=== PATIENT | male | born 1935 | race Caucasian/White ===

== ENCOUNTER 2021-09-12 14:37 | Emergency (ER) | payer MEDICARE, OTHER, SELFPAY ==
[2021-09-12] VITALS (145 sets, daily range): BP systolic 73–189; BP diastolic 50–147; PULSE 0–174; RESP 5–63; TEMP 36–37.2; O2SAT 71–100; BMI 27.8
--- NOTE | 2021-09-12 14:45 | DI.RAD.S_ITS ---
PROCEDURE: XR CHEST 1V INDICATIONS: Chest pain, arrhythmia TECHNIQUE: One view of the chest was acquired. COMPARISON: [facility], [place], XR CHEST 1 VIEW, 02/18/2020, 11:47. FINDINGS: The tracheal tube tip 2 cm above the sterling. Nasogastric tube in the stomach. Left-sided biventricular pacemaker/defibrillator noted. There are midline sternal wires, and multiple overlying leads and wires present. Elevation left hemidiaphragm with blunting the left costophrenic angle. Right lung and pleural space clear. No pneumothorax . Heart size enlarged, there is moderate vascular congestion. Auto text arch Osseous structures demineralized. IMPRESSION: Elevated left hemidiaphragm with pleural effusion. No pneumothorax Cardiomegaly, moderate vascular congestion with pacemaker/defibrillator present. Endotracheal and nasogastric tubes in good position. Aortic atherosclerosis and osteopenia Approved by: Celestine Craven M.D. on 09/12/2021 at 15:41
[2021-09-12] MEDS: MIDAZOLAM 2 MG/2 ML VIAL 1 MG IV ×2 (14:48→15:12)
[2021-09-12] MEDS: AMIODARONE 150 MG/3 ML VIAL 300 MG IV (14:51)
[2021-09-12 14:58] LABS: Add Manual Diff / Slide Review NO; Basophils Absolute Auto 100 /uL (0-100); Basophils Percent Auto 0.8 % (0-2); Eosinophils Absolute Auto 100 /uL (0-450); Eosinophils Percent Auto 2.1 % (2-4); Hematocrit 42.9 % (41-53); Hemoglobin 14.1 g/dL (13.5-17.5); Lymphocytes Absolute Auto 1200 /uL (1100-4500); Lymphocytes Percent Auto 19.1 % (25-40); Mean Corpuscular HGB Conc 32.8 % (30-36); Mean Corpuscular Hemoglobin 31.8 PG (26-34); Monocytes Absolute Auto 800 /uL (0-900); Neutrophils Absolute Auto 4200 /uL (1500-7000); Platelet Count 158 X10^3/uL (150-400); Red Blood Cell Count 4.42 X10^6/uL (4.5-5.9); Red Cell Distribution Width 14.4 % (11.6-14.8); White Blood Cell Count 6.4 X10^3/uL (4.5-11.0)
[2021-09-12] MEDS: SODIUM CHLORIDE 0.9% 1,000 ML 1000 ML IV (15:00)
[2021-09-12] MEDS: AMIODARONE 150 MG/100 ML PIGGYBACK 600 MG IV (15:00)
--- NOTE | 2021-09-12 15:09 | ED_ITS ---
HPI - General Adult <Gila Dee MD - Last Filed: 09/19/21 04:20> General Chief complaint: Arrhythmia/Palpitations Stated complaint: [employer] Going Off Time Seen by Provider: 09/12/21 14:44 Source: patient and family Mode of arrival: Family Vehicle History of Present Illness HPI narrative: 85-year-old gentleman with a history of ischemic cardiomyopathy with pacemaker defibrillator, anticoagulated on Coumadin, hypertension, hyperlipidemia, congestive heart failure, peripheral neuropathy brought in by his when his defibrillator was continuing to discharge. Apparently he was in his usual state of health having no chest pain, palpitations, shortness of breath no lower extremity edema no fevers, cough, chills, vomiting, diarrhea and as they were driving he was shocked by his defibrillator and continued to be shocked multiple times after that. On arrival in the emergency department was having runs of ventricular tachycardia. He was shocked 1 additional time after arrival in the emergency department. Related Data Home Medications Medication Instructions Recorded Confirmed atorvastatin 20 mg tablet PO #90 tab 12/09/18 04/21/20 bupropion HCl 100 mg tablet 100 mg PO BID 12/09/18 04/21/20 bupropion HCl 100 mg tablet PO #180 tab 12/09/18 04/21/20 epinephrine 0.3 mg/0.3 mL 0.3 mg IM ONCE 12/09/18 04/21/20 injection, auto-injector (EpiPen 2-David) ferrous sulfate 325 mg (65 mg 325 mg PO DAILY tab 12/09/18 04/21/20 iron) tablet,delayed release sacubitril 49 mg-valsartan 51 mg PO #60 tab 12/09/18 04/21/20 tablet warfarin 5 mg tablet PO #90 tab 12/09/18 04/21/20 calcium carbonate 500 mg calcium 750 mg PO DAILY tab 04/21/20 04/21/20 (1,250 mg) chewable tablet (Calcium 500) cholecalciferol (vitamin D3) 25 25 mcg PO DAILY 04/21/20 04/21/20 mcg (1,000 unit) capsule cyanocobalamin (vitamin B-12) 1,000 mcg PO DAILY 04/21/20 04/21/20 1,000 mcg capsule furosemide 40 mg tablet 20 mg PO DAILY #120 tab 04/21/20 04/21/20 gabapentin 100 mg capsule 100 mg PO TID 04/21/20 04/21/20 metoprolol succinate 25 mg 12.5 mg PO DAILY 04/21/20 04/21/20 tablet,extended release 24 hr Allergies Allergy/AdvReac Type Severity Reaction Status Date / Time venom-honey bee Allergy Mild Verified 09/12/21 20:45 Review of Systems <Gila Dee MD - Last Filed: 09/19/21 04:20> Review of Systems Narrative: Remainder of complete review of systems is otherwise unremarkable except for that included in the HPI. Patient History <Gila Dee MD - Last Filed: 09/19/21 04:20> Medical History Chronic anticoagulation Hyperlipidemia Hypertension Surgical History History of heart bypass surgery Social History Smoking Status: Former smoker Smoking Status: Former smoker Exam <Gila Dee MD - Last Filed: 09/19/21 04:20> Initial Vital Signs Initial Vital Signs: Vital Signs Temperature 96.8 F L 09/12/21 14:37 Pulse Rate 174 H 09/12/21 14:37 Respiratory Rate 18 09/12/21 14:37 Blood Pressure 114/60 09/12/21 14:37 Pulse Oximetry 88 L 09/12/21 14:37 <Óscar Torres DO - Last Filed: 09/13/21 06:28> Initial Vital Signs Initial Vital Signs: Vital Signs Temperature 96.8 F L 09/12/21 14:37 Pulse Rate 174 H 09/12/21 14:37 Respiratory Rate 18 09/12/21 14:37 Blood Pressure 114/60 09/12/21 14:37 Pulse Oximetry 88 L 09/12/21 14:37 Course <Gila Dee MD - Last Filed: 09/19/21 04:20> Orders Ordered: Discontinued Medications Amiodarone HCl (Amiodarone 150 Mg/3 Ml Vial) 300 mg IV NOW ONE Stop: 09/12/21 14:45 Last Admin: 09/12/21 14:51 Dose: 300 mg Documented by: MARIA R Chlorhexidine Gluconate (Chlorhexidine Gluconate 15 Ml Cup) 15 ml PO Q6HR ROXANA Last Admin: 09/13/21 04:15 Dose: 15 ml Documented by: Admin: 09/12/21 19:53 Dose: Not Given Documented by: JOSE Fentanyl (Fentanyl 100 Mcg/2 Ml Inj) 50 mcg IV NOW ONE Stop: 09/12/21 17:07 Last Admin: 09/12/21 15:12 Dose: 50 mcg Documented by: MARIA R Fentanyl (Fentanyl 100 Mcg/2 Ml Inj) 50 mcg IV Q15MIN PRN PRN Reason: Pain, Severe (7-10) Last Admin: 09/12/21 20:08 Dose: 50 mcg Documented by: JOSE Heparin Sodium (Porcine) (Heparin 5,000 Unit/Ml Vial) 4,000 unit IV NOW ONE Stop: 09/12/21 22:15 Last Admin: 09/12/21 23:18 Dose: 4,000 unit Documented by: JOSE Amiodarone HCl/Dextrose (Nexterone) 150 mg in 100 mls @ 600 mls/hr IV NOW ONE; Protocol Stop: 09/12/21 15:13 Last Infusion: 09/12/21 15:11 Dose: 0 mls/hr Documented by: Admin: 09/12/21 15:00 Dose: 600 mls/hr Documented by: MARIA R NOREPINEPHRINE BITARTRATE/D5W (Levophed) 4 mg in 250 mls @ 30 mls/hr IV TITRATE [facility]; Protocol Last Titration: 09/13/21 06:43 Dose: 4 mcg/min, 15 mls/hr Documented by: Admin: 09/13/21 04:14 Dose: 4 mcg/min, 15 mls/hr Documented by: Titration: 09/13/21 04:14 Dose: 4 mcg/min, 15 mls/hr Documented by: Titration: 09/12/21 23:04 Dose: 4 mcg/min, 15 mls/hr Documented by: Titration: 09/12/21 22:07 Dose: 2 mcg/min, 7.5 mls/hr Documented by: Titration: 09/12/21 19:15 Dose: 4 mcg/min, 15 mls/hr Documented by: Titration: 09/12/21 17:49 Dose: 6 mcg/min, 22.5 mls/hr Documented by: Titration: 09/12/21 15:57 Dose: 8 mcg/min, 30 mls/hr Documented by: MARIA R Admin: 09/12/21 15:20 Dose: 8 mcg/min, 30 mls/hr Documented by: MARIA R Sodium Chloride (Normal Saline 0.9%) 1,000 mls @ 1,000 mls/hr IV BOLUS ONE Stop: 09/12/21 16:35 Last Infusion: 09/12/21 16:00 Dose: 0 mls/hr Documented by: Admin: 09/12/21 15:00 Dose: 1,000 mls/hr Documented by: JOSE Fentanyl 1,000 mcg/ Dextrose 250 mls @ 20.185 mls/hr IV TITRATE ROXANA; Protocol Last Titration: 09/13/21 06:44 Dose: 1 mcg/kg/hr, 20.185 mls/hr Documented by: Admin: 09/13/21 01:57 Dose: 1 mcg/kg/hr, 20.185 mls/hr Documented by: Titration: 09/13/21 01:57 Dose: 1 mcg/kg/hr, 20.185 mls/hr Documented by: Admin: 09/12/21 15:54 Dose: 1 mcg/kg/hr, 20.185 mls/hr Documented by: JOSE Propofol (Propofol) 1,000 mg in 100 mls @ 2.422 mls/hr IV TITRATE ROXANA; Protocol Last Titration: 09/13/21 06:44 Dose: 25 mcg/kg/min, 12.111 mls/hr Documented by: Admin: 09/13/21 01:06 Dose: 25 mcg/kg/min, 12.111 mls/hr Documented by: Titration: 09/13/21 01:06 Dose: 25 mcg/kg/min, 12.111 mls/hr Documented by: Titration: 09/12/21 20:13 Dose: 25 mcg/kg/min, 12.111 mls/hr Documented by: Titration: 09/12/21 18:42 Dose: 20 mcg/kg/min, 9.689 mls/hr Documented by: Titration: 09/12/21 17:59 Dose: 10 mcg/kg/min, 4.844 mls/hr Documented by: Admin: 09/12/21 17:46 Dose: 5 mcg/kg/min, 2.422 mls/hr Documented by: LINDAYLALONSO Amiodarone HCl/Dextrose (Nexterone) 360 mg in 200 mls @ 33.333 mls/hr IV NOW ONE; Protocol Stop: 09/13/21 01:05 Last Titration: 09/13/21 06:21 Dose: 0 mls/hr, 0 mls/hr Documented by: Admin: 09/12/21 19:42 Dose: 33.333 mls/hr, 33.33 mls/hr Documented by: JOSE Heparin Sodium/Dextrose (Heparin Drip) 25,000 unit in 500 mls @ 20 mls/hr IV CONT ROXANA; Protocol Last Titration: 09/13/21 06:46 Dose: 1,000 units/hr, 20 mls/hr Documented by: Admin: 09/12/21 23:20 Dose: 1,000 units/hr, 20 mls/hr Documented by: ATAYLOR Amiodarone HCl/Dextrose (Nexterone) 360 mg in 200 mls @ 33.333 mls/hr IV NOW ONE; Protocol Stop: 09/13/21 07:19 Last Titration: 09/13/21 06:45 Dose: 33.33 mls/hr, 33.33 mls/hr Documented by: Admin: 09/13/21 01:44 Dose: 33.33 mls/hr, 33.33 mls/hr Documented by: LANE Midazolam HCl (Midazolam 2 Mg/2 Ml Vial) 1 mg IV NOW ONE Stop: 09/12/21 14:45 Last Admin: 09/12/21 14:48 Dose: 1 mg Documented by: MARIA R Midazolam HCl (Midazolam 2 Mg/2 Ml Vial) 1 mg IV NOW ONE Stop: 09/12/21 17:07 Last Admin: 09/12/21 15:12 Dose: 1 mg Documented by: MARIA R Vital Signs Vital signs: Vital Signs - 8 hr 09/12/21 22:20 09/12/21 22:30 09/12/21 22:40 Temperature 97.7 F 97.7 F 97.7 F Pulse Rate 60 66 60 Respiratory Rate 43 H 42 H 41 H Blood Pressure 104/59 L Pulse Oximetry 100 100 100 09/12/21 22:45 09/12/21 22:50 09/12/21 23:00 Temperature 97.7 F 97.7 F 97.7 F Pulse Rate 67 67 61 Respiratory Rate 40 H 40 H 46 H Blood Pressure 100/59 L 87/60 L Pulse Oximetry 100 100 100 09/12/21 23:02 09/12/21 23:10 09/12/21 23:15 Temperature 97.7 F 97.7 F 97.7 F Pulse Rate 60 61 66 Respiratory Rate 47 H 44 H 16 Blood Pressure 95/56 L 101/58 L Pulse Oximetry 100 100 100 09/12/21 23:20 09/12/21 23:30 09/12/21 23:40 Temperature 97.7 F 97.7 F 97.7 F Pulse Rate 71 67 72 Respiratory Rate 16 16 16 Blood Pressure 102/54 L Pulse Oximetry 100 100 100 09/12/21 23:46 09/12/21 23:50 09/13/21 00:00 Temperature 97.5 F L 97.5 F L 97.5 F L Pulse Rate 61 61 62 Respiratory Rate 16 16 16 Blood Pressure 106/60 111/62 Pulse Oximetry 100 100 100 09/13/21 00:10 09/13/21 00:16 09/13/21 00:20 Temperature 97.5 F L 97.5 F L 97.5 F L Pulse Rate 70 65 65 Respiratory Rate 16 16 46 H Blood Pressure 109/56 L Pulse Oximetry 100 100 100 09/13/21 00:30 09/13/21 00:40 09/13/21 00:45 Temperature 97.5 F L 97.5 F L 97.5 F L Pulse Rate 65 69 60 Respiratory Rate 45 H 18 25 H Blood Pressure 105/67 105/64 Pulse Oximetry 100 100 100 09/13/21 00:50 09/13/21 01:00 09/13/21 01:10 Temperature 97.5 F L 97.5 F L 97.5 F L Pulse Rate 64 65 73 Respiratory Rate 22 24 22 Blood Pressure 107/56 L Pulse Oximetry 100 100 100 09/13/21 01:15 09/13/21 01:20 09/13/21 01:30 Temperature 97.5 F L 97.5 F L 97.5 F L Pulse Rate 70 68 84 Respiratory Rate 21 21 19 Blood Pressure 103/56 L 106/55 L Pulse Oximetry 100 100 100 09/13/21 01:40 09/13/21 01:45 09/13/21 01:50 Temperature 97.5 F L Pulse Rate 70 72 83 Respiratory Rate 22 18 16 Blood Pressure 100/56 L Pulse Oximetry 100 100 100 09/13/21 02:00 09/13/21 02:10 09/13/21 02:15 Temperature Pulse Rate 67 69 70 Respiratory Rate 22 16 16 Blood Pressure 109/60 117/63 Pulse Oximetry 100 100 100 09/13/21 02:20 09/13/21 02:30 09/13/21 02:40 Temperature Pulse Rate 70 82 73 Respiratory Rate 16 16 16 Blood Pressure Pulse Oximetry 100 100 100 09/13/21 02:45 09/13/21 02:50 09/13/21 03:00 Temperature Pulse Rate 81 90 82 Respiratory Rate 16 16 16 Blood Pressure 119/70 114/77 Pulse Oximetry 100 100 100 09/13/21 03:10 09/13/21 03:20 09/13/21 03:28 Temperature Pulse Rate 61 68 76 Respiratory Rate 16 16 16 Blood Pressure 117/60 Pulse Oximetry 100 100 100 09/13/21 03:30 09/13/21 03:40 09/13/21 03:45 Temperature Pulse Rate 73 83 89 Respiratory Rate 18 16 16 Blood Pressure 112/73 104/68 Pulse Oximetry 100 100 100 09/13/21 03:50 09/13/21 04:00 09/13/21 04:10 Temperature Pulse Rate 74 68 85 Respiratory Rate 16 16 21 Blood Pressure 97/68 Pulse Oximetry 100 100 100 09/13/21 04:18 09/13/21 04:20 09/13/21 04:26 Temperature Pulse Rate 65 81 72 Respiratory Rate 21 23 21 Blood Pressure 109/69 102/72 Pulse Oximetry 100 100 100 09/13/21 04:30 09/13/21 04:40 09/13/21 04:50 Temperature Pulse Rate 76 88 77 Respiratory Rate 19 23 22 Blood Pressure 112/67 Pulse Oximetry 100 100 100 09/13/21 05:00 09/13/21 05:10 09/13/21 05:20 Temperature Pulse Rate 83 83 77 Respiratory Rate 20 21 Blood Pressure 108/78 Pulse Oximetry 100 100 100 09/13/21 05:30 09/13/21 05:40 09/13/21 05:50 Temperature Pulse Rate 86 77 73 Respiratory Rate 18 20 21 Blood Pressure 123/77 Pulse Oximetry 100 100 100 <Óscar Torres, - Last Filed: 09/13/21 06:28> Orders Ordered: Discontinued Medications Amiodarone HCl (Amiodarone 150 Mg/3 Ml Vial) 300 mg IV NOW ONE Stop: 09/12/21 14:45 Last Admin: 09/12/21 14:51 Dose: 300 mg Documented by: MARIA R Chlorhexidine Gluconate (Chlorhexidine Gluconate 15 Ml Cup) 15 ml PO Q6HR ROXANA Last Admin: 09/13/21 04:15 Dose: 15 ml Documented by: Admin: 09/12/21 19:53 Dose: Not Given Documented by: JOSE Fentanyl (Fentanyl 100 Mcg/2 Ml Inj) 50 mcg IV NOW ONE Stop: 09/12/21 17:07 Last Admin: 09/12/21 15:12 Dose: 50 mcg Documented by: MARIA R Fentanyl (Fentanyl 100 Mcg/2 Ml Inj) 50 mcg IV Q15MIN PRN PRN Reason: Pain, Severe (7-10) Last Admin: 09/12/21 20:08 Dose: 50 mcg Documented by: JOSE Heparin Sodium (Porcine) (Heparin 5,000 Unit/Ml Vial) 4,000 unit IV NOW ONE Stop: 09/12/21 22:15 Last Admin: 09/12/21 23:18 Dose: 4,000 unit Documented by: JOSE Amiodarone HCl/Dextrose (Nexterone) 150 mg in 100 mls @ 600 mls/hr IV NOW ONE; Protocol Stop: 09/12/21 15:13 Last Infusion: 09/12/21 15:11 Dose: 0 mls/hr Documented by: Admin: 09/12/21 15:00 Dose: 600 mls/hr Documented by: MARIA R NOREPINEPHRINE BITARTRATE/D5W (Levophed) 4 mg in 250 mls @ 30 mls/hr IV TITRATE ROXANA; Protocol Last Titration: 09/13/21 06:43 Dose: 4 mcg/min, 15 mls/hr Documented by: Admin: 09/13/21 04:14 Dose: 4 mcg/min, 15 mls/hr Documented by: Titration: 09/13/21 04:14 Dose: 4 mcg/min, 15 mls/hr Documented by: Titration: 09/12/21 23:04 Dose: 4 mcg/min, 15 mls/hr Documented by: Titration: 09/12/21 22:07 Dose: 2 mcg/min, 7.5 mls/hr Documented by: Titration: 09/12/21 19:15 Dose: 4 mcg/min, 15 mls/hr Documented by: Titration: 09/12/21 17:49 Dose: 6 mcg/min, 22.5 mls/hr Documented by: Titration: 09/12/21 15:57 Dose: 8 mcg/min, 30 mls/hr Documented by: MARIA R Admin: 09/12/21 15:20 Dose: 8 mcg/min, 30 mls/hr Documented by: MARIA R Sodium Chloride (Normal Saline 0.9%) 1,000 mls @ 1,000 mls/hr IV BOLUS ONE Stop: 09/12/21 16:35 Last Infusion: 09/12/21 16:00 Dose: 0 mls/hr Documented by: Admin: 09/12/21 15:00 Dose: 1,000 mls/hr Documented by: ATAREKHAOR Fentanyl 1,000 mcg/ Dextrose 250 mls @ 20.185 mls/hr IV TITRATE [facility]; Protocol Last Titration: 09/13/21 06:44 Dose: 1 mcg/kg/hr, 20.185 mls/hr Documented by: Admin: 09/13/21 01:57 Dose: 1 mcg/kg/hr, 20.185 mls/hr Documented by: Titration: 09/13/21 01:57 Dose: 1 mcg/kg/hr, 20.185 mls/hr Documented by: Admin: 09/12/21 15:54 Dose: 1 mcg/kg/hr, 20.185 mls/hr Documented by: MEHRANOR Propofol (Propofol) 1,000 mg in 100 mls @ 2.422 mls/hr IV TITRATE ROXANA; Protocol Last Titration: 09/13/21 06:44 Dose: 25 mcg/kg/min, 12.111 mls/hr Documented by: Admin: 09/13/21 01:06 Dose: 25 mcg/kg/min, 12.111 mls/hr Documented by: Titration: 09/13/21 01:06 Dose: 25 mcg/kg/min, 12.111 mls/hr Documented by: Titration: 09/12/21 20:13 Dose: 25 mcg/kg/min, 12.111 mls/hr Documented by: Titration: 09/12/21 18:42 Dose: 20 mcg/kg/min, 9.689 mls/hr Documented by: Titration: 09/12/21 17:59 Dose: 10 mcg/kg/min, 4.844 mls/hr Documented by: Admin: 09/12/21 17:46 Dose: 5 mcg/kg/min, 2.422 mls/hr Documented by: ATAYLOR Amiodarone HCl/Dextrose (Nexterone) 360 mg in 200 mls @ 33.333 mls/hr IV NOW ONE; Protocol Stop: 09/13/21 01:05 Last Titration: 09/13/21 06:21 Dose: 0 mls/hr, 0 mls/hr Documented by: Admin: 09/12/21 19:42 Dose: 33.333 mls/hr, 33.33 mls/hr Documented by: ATAYLOR Heparin Sodium/Dextrose (Heparin Drip) 25,000 unit in 500 mls @ 20 mls/hr IV CONT ROXANA; Protocol Last Titration: 09/13/21 06:46 Dose: 1,000 units/hr, 20 mls/hr Documented by: Admin: 09/12/21 23:20 Dose: 1,000 units/hr, 20 mls/hr Documented by: ATAYLOR Amiodarone HCl/Dextrose (Nexterone) 360 mg in 200 mls @ 33.333 mls/hr IV NOW ONE; Protocol Stop: 09/13/21 07:19 Last Titration: 09/13/21 06:45 Dose: 33.33 mls/hr, 33.33 mls/hr Documented by: Admin: 09/13/21 01:44 Dose: 33.33 mls/hr, 33.33 mls/hr Documented by: LANE Midazolam HCl (Midazolam 2 Mg/2 Ml Vial) 1 mg IV NOW ONE Stop: 09/12/21 14:45 Last Admin: 09/12/21 14:48 Dose: 1 mg Documented by: MARIA R Midazolam HCl (Midazolam 2 Mg/2 Ml Vial) 1 mg IV NOW ONE Stop: 09/12/21 17:07 Last Admin: 09/12/21 15:12 Dose: 1 mg Documented by: MARIA R Vital Signs Vital signs: Vital Signs - 8 hr 09/12/21 22:20 09/12/21 22:30 09/12/21 22:40 Temperature 97.7 F 97.7 F 97.7 F Pulse Rate 60 66 60 Respiratory Rate 43 H 42 H 41 H Blood Pressure 104/59 L Pulse Oximetry 100 100 100 09/12/21 22:45 09/12/21 22:50 09/12/21 23:00 Temperature 97.7 F 97.7 F 97.7 F Pulse Rate 67 67 61 Respiratory Rate 40 H 40 H 46 H Blood Pressure 100/59 L 87/60 L Pulse Oximetry 100 100 100 09/12/21 23:02 09/12/21 23:10 09/12/21 23:15 Temperature 97.7 F 97.7 F 97.7 F Pulse Rate 60 61 66 Respiratory Rate 47 H 44 H 16 Blood Pressure 95/56 L 101/58 L Pulse Oximetry 100 100 100 09/12/21 23:20 09/12/21 23:30 09/12/21 23:40 Temperature 97.7 F 97.7 F 97.7 F Pulse Rate 71 67 72 Respiratory Rate 16 16 16 Blood Pressure 102/54 L Pulse Oximetry 100 100 100 09/12/21 23:46 09/12/21 23:50 09/13/21 00:00 Temperature 97.5 F L 97.5 F L 97.5 F L Pulse Rate 61 61 62 Respiratory Rate 16 16 16 Blood Pressure 106/60 111/62 Pulse Oximetry 100 100 100 09/13/21 00:10 09/13/21 00:16 09/13/21 00:20 Temperature 97.5 F L 97.5 F L 97.5 F L Pulse Rate 70 65 65 Respiratory Rate 16 16 46 H Blood Pressure 109/56 L Pulse Oximetry 100 100 100 09/13/21 00:30 09/13/21 00:40 09/13/21 00:45 Temperature 97.5 F L 97.5 F L 97.5 F L Pulse Rate 65 69 60 Respiratory Rate 45 H 18 25 H Blood Pressure 105/67 105/64 Pulse Oximetry 100 100 100 09/13/21 00:50 09/13/21 01:00 09/13/21 01:10 Temperature 97.5 F L 97.5 F L 97.5 F L Pulse Rate 64 65 73 Respiratory Rate 22 24 22 Blood Pressure 107/56 L Pulse Oximetry 100 100 100 09/13/21 01:15 09/13/21 01:20 09/13/21 01:30 Temperature 97.5 F L 97.5 F L 97.5 F L Pulse Rate 70 68 84 Respiratory Rate 21 21 19 Blood Pressure 103/56 L 106/55 L Pulse Oximetry 100 100 100 09/13/21 01:40 09/13/21 01:45 09/13/21 01:50 Temperature 97.5 F L Pulse Rate 70 72 83 Respiratory Rate 22 18 16 Blood Pressure 100/56 L Pulse Oximetry 100 100 100 09/13/21 02:00 09/13/21 02:10 09/13/21 02:15 Temperature Pulse Rate 67 69 70 Respiratory Rate 22 16 16 Blood Pressure 109/60 117/63 Pulse Oximetry 100 100 100 09/13/21 02:20 09/13/21 02:30 09/13/21 02:40 Temperature Pulse Rate 70 82 73 Respiratory Rate 16 16 16 Blood Pressure Pulse Oximetry 100 100 100 09/13/21 02:45 09/13/21 02:50 09/13/21 03:00 Temperature Pulse Rate 81 90 82 Respiratory Rate 16 16 16 Blood Pressure 119/70 114/77 Pulse Oximetry 100 100 100 09/13/21 03:10 09/13/21 03:20 09/13/21 03:28 Temperature Pulse Rate 61 68 76 Respiratory Rate 16 16 16 Blood Pressure 117/60 Pulse Oximetry 100 100 100 09/13/21 03:30 09/13/21 03:40 09/13/21 03:45 Temperature Pulse Rate 73 83 89 Respiratory Rate 18 16 16 Blood Pressure 112/73 104/68 Pulse Oximetry 100 100 100 09/13/21 03:50 09/13/21 04:00 09/13/21 04:10 Temperature Pulse Rate 74 68 85 Respiratory Rate 16 16 21 Blood Pressure 97/68 Pulse Oximetry 100 100 100 09/13/21 04:18 09/13/21 04:20 09/13/21 04:26 Temperature Pulse Rate 65 81 72 Respiratory Rate 21 23 21 Blood Pressure 109/69 102/72 Pulse Oximetry 100 100 100 09/13/21 04:30 09/13/21 04:40 09/13/21 04:50 Temperature Pulse Rate 76 88 77 Respiratory Rate 19 23 22 Blood Pressure 112/67 Pulse Oximetry 100 100 100 09/13/21 05:00 09/13/21 05:10 09/13/21 05:20 Temperature Pulse Rate 83 83 77 Respiratory Rate 20 21 Blood Pressure 108/78 Pulse Oximetry 100 100 100 09/13/21 05:30 09/13/21 05:40 09/13/21 05:50 Temperature Pulse Rate 86 77 73 Respiratory Rate 18 20 21 Blood Pressure 123/77 Pulse Oximetry 100 100 100 Medical Decision Making <Gila Dee MD - Last Filed: 09/19/21 04:20> Lab Data Result diagrams: 09/12/21 14:45 09/12/21 14:45 Labs: Lab Results 09/12/21 09/12/21 09/12/21 Range/Units 14:45 14:45 14:45 WBC 6.4 (4.5-11.0) X10^3/uL RBC 4.42 L (4.5-5.9) X10^6/uL Hgb 14.1 (13.5-17.5) g/dL Hct 42.9 (41-53) % MCV 97.0 (80-100) fL MCH 31.8 (26-34) PG MCHC 32.8 (30-36) % RDW 14.4 (11.6-14.8) % Plt Count 158 (150-400) X10^3/uL Neut % (Auto) 66.0 (50-75) % Lymph % (Auto) 19.1 L (25-40) % Lares % (Auto) 12.0 (3-14) % Eos % (Auto) 2.1 (2-4) % Baso % (Auto) 0.8 (0-2) % Neut # (Auto) 4200 (7236-7322) /uL Lymph # (Auto) 1200 (9711-2288) /uL Lares # (Auto) 800 (0-900) /uL Eos # (Auto) 100 (0-450) /uL Baso # (Auto) 100 (0-100) /uL PT 27.7 H (10.1-12.7) SECONDS INR 2.4 H (0.9-1.3) APTT 37 H (26.4-36.2) SECONDS ABG pH (7.35-7.45) ABG pCO2 (35-45) mmHg ABG pO2 (80-100) mmHg ABG HCO3 (22-26) mmol/L ABG Total CO2 (21-31) mmol/L ABG O2 Saturation (95-100) % ABG Base Excess (-2-2) mmol/L FiO2 Sodium 142 (137-145) mmol/L Potassium 4.0 (3.4-5.1) mmol/L Chloride 107 (98-107) mmol/L Carbon Dioxide 28 (22-32) mmol/L BUN 37 H (9-20) mg/dL Creatinine 1.63 H (0.66-1.25) mg/dL Estimated GFR 40.6 L (>60) mL/min BUN/Creatinine Ratio 22.7 H (6-22) Glucose 127 H (80-110) mg/dL Calcium 10.5 H (8.4-10.2) mg/dL Magnesium 1.9 (1.6-2.3) mg/dL Total Bilirubin 0.9 (0.2-1.3) mg/dL AST 36 (17-59) IU/L ALT 25 (<50) IU/L Alkaline Phosphatase 84 (38-126) U/L Troponin I 0.058 H (0.01-0.034) ng/mL Total Protein 6.5 (6.3-8.2) g/dL Albumin 3.9 (3.5-5.0) g/dL Globulin 2.6 (1.7-4.1) g/dL Albumin/Globulin Ratio 1.5 (1.0-2.8) SARS-CoV-2 (PCR) (Negative) 09/12/21 09/12/21 09/12/21 Range/Units 15:30 16:04 19:51 WBC (4.5-11.0) X10^3/uL RBC (4.5-5.9) X10^6/uL Hgb (13.5-17.5) g/dL Hct (41-53) % MCV (80-100) fL MCH (26-34) PG MCHC (30-36) % RDW (11.6-14.8) % Plt Count (150-400) X10^3/uL Neut % (Auto) (50-75) % Lymph % (Auto) (25-40) % Lares % (Auto) (3-14) % Eos % (Auto) (2-4) % Baso % (Auto) (0-2) % Neut # (Auto) (2066-2129) /uL Lymph # (Auto) (9761-3251) /uL Lares # (Auto) (0-900) /uL Eos # (Auto) (0-450) /uL Baso # (Auto) (0-100) /uL PT (10.1-12.7) SECONDS INR (0.9-1.3) APTT (26.4-36.2) SECONDS ABG pH 7.33 L (7.35-7.45) ABG pCO2 44.5 (35-45) mmHg ABG pO2 91 (80-100) mmHg ABG HCO3 24 (22-26) mmol/L ABG Total CO2 25 (21-31) mmol/L ABG O2 Saturation 96 (95-100) % ABG Base Excess -2.0 (-2-2) mmol/L FiO2 40 Sodium (137-145) mmol/L Potassium (3.4-5.1) mmol/L Chloride (98-107) mmol/L Carbon Dioxide (22-32) mmol/L BUN (9-20) mg/dL Creatinine (0.66-1.25) mg/dL Estimated GFR (>60) mL/min BUN/Creatinine Ratio (6-22) Glucose (80-110) mg/dL Calcium (8.4-10.2) mg/dL Magnesium (1.6-2.3) mg/dL Total Bilirubin (0.2-1.3) mg/dL AST (17-59) IU/L ALT (<50) IU/L Alkaline Phosphatase (38-126) U/L Troponin I 0.875 H* (0.01-0.034) ng/mL Total Protein (6.3-8.2) g/dL Albumin (3.5-5.0) g/dL Globulin (1.7-4.1) g/dL Albumin/Globulin Ratio (1.0-2.8) SARS-CoV-2 (PCR) Negative (Negative) Imaging Data Chest x-ray: Radiologist's Impression: FINDINGS: ? The tracheal tube tip 2 cm above the sterling.? Nasogastric tube in the stomach.? Left-sided biventricular pacemaker/defibrillator noted.? There are midline sternal wires, and multiple overlying leads and wires present.? ? Elevation left hemidiaphragm with blunting the left costophrenic angle.? Right lung and pleural space clear.? No pneumothorax .? Heart size enlarged, there is moderate vascular congestion.? Auto text arch ? Osseous structures demineralized. ? IMPRESSION:? ? Elevated left hemidiaphragm with pleural effusion.? No pneumothorax Cardiomegaly, moderate vascular congestion with pacemaker/defibrillator present. Endotracheal and nasogastric tubes in good position. Aortic atherosclerosis and osteopenia? ? ? Approved by: Celestine Craven M.D. on 09/12/2021 at 15:41? ECG Data Interpretation: Paced rhythm at a rate of 86 MDM Narrative Medical decision making narrative: 85-year-old gentleman who presents with recurrent episodes of implanted defibrillator shocking him secondary to ventricular tachycardia. Patient has never been seen at [facility] and no additional medical history was available. As he is becoming more unstable severity of the situation including possibility of were reviewed with his and she was ordered to the waiting room. Multiple rhythms ranging from wide complex rhythm at a rate in the 60s to polymorphic V-tach in the 160 range. He is not maintaining any rhythm long enough to override shock him. He is given amiodarone 300 mg IV and an additional 150 is repeated. Work of breathing with increasing distal cyanosis is becoming more problematic so decision was made to intubate prior to full respiratory arrest. With continued significant V-tach and wide complex arrhythmias he is given 100 mg of lidocaine which was repeated approximately 20 minutes later. After intubation and after adequate time for anti arrhythmics to likely take affect his rhythm seems to be stabilizing into wide complex mostly paced rhythm. Currently is on Levophed for pressure control and propofol and fentanyl for sedation will wean off the fentanyl. 7pm Discuss[address] with Dr Masterson, cardiology regarding post arrest care. He has an EF of 20-25. H/o oral amiodirone in the past. He recommended continuing amiodarone drip at a mg per minute and considering transfer to [facility] for further workup and definitive treatment. If possible he did think that weaning off pressors and then beginning to wean off sedation would likely lead to successful extubation. Will contact [facility] transfer center to see if bed is available. Dr. Masterson, cardiology, would be consulting and medicine would need to be the admitting service. <Óscar Torres, - Last Filed: 09/13/21 06:28> Lab Data Labs: Lab Results 09/12/21 09/12/21 09/12/21 Range/Units 14:45 14:45 14:45 WBC 6.4 (4.5-11.0) X10^3/uL RBC 4.42 L (4.5-5.9) X10^6/uL Hgb 14.1 (13.5-17.5) g/dL Hct 42.9 (41-53) % MCV 97.0 (80-100) fL MCH 31.8 (26-34) PG MCHC 32.8 (30-36) % RDW 14.4 (11.6-14.8) % Plt Count 158 (150-400) X10^3/uL Neut % (Auto) 66.0 (50-75) % Lymph % (Auto) 19.1 L (25-40) % Lares % (Auto) 12.0 (3-14) % Eos % (Auto) 2.1 (2-4) % Baso % (Auto) 0.8 (0-2) % Neut # (Auto) 4200 (2391-0813) /uL Lymph # (Auto) 1200 (2021-6482) /uL Lares # (Auto) 800 (0-900) /uL Eos # (Auto) 100 (0-450) /uL Baso # (Auto) 100 (0-100) /uL PT 27.7 H (10.1-12.7) SECONDS INR 2.4 H (0.9-1.3) APTT 37 H (26.4-36.2) SECONDS ABG pH (7.35-7.45) ABG pCO2 (35-45) mmHg ABG pO2 (80-100) mmHg ABG HCO3 (22-26) mmol/L ABG Total CO2 (21-31) mmol/L ABG O2 Saturation (95-100) % ABG Base Excess (-2-2) mmol/L FiO2 Sodium 142 (137-145) mmol/L Potassium 4.0 (3.4-5.1) mmol/L Chloride 107 (98-107) mmol/L Carbon Dioxide 28 (22-32) mmol/L BUN 37 H (9-20) mg/dL Creatinine 1.63 H (0.66-1.25) mg/dL Estimated GFR 40.6 L (>60) mL/min BUN/Creatinine Ratio 22.7 H (6-22) Glucose 127 H (80-110) mg/dL Calcium 10.5 H (8.4-10.2) mg/dL Magnesium 1.9 (1.6-2.3) mg/dL Total Bilirubin 0.9 (0.2-1.3) mg/dL AST 36 (17-59) IU/L ALT 25 (<50) IU/L Alkaline Phosphatase 84 (38-126) U/L Troponin I 0.058 H (0.01-0.034) ng/mL Total Protein 6.5 (6.3-8.2) g/dL Albumin 3.9 (3.5-5.0) g/dL Globulin 2.6 (1.7-4.1) g/dL Albumin/Globulin Ratio 1.5 (1.0-2.8) SARS-CoV-2 (PCR) (Negative) 09/12/21 09/12/21 09/12/21 Range/Units 15:30 16:04 19:51 WBC (4.5-11.0) X10^3/uL RBC (4.5-5.9) X10^6/uL Hgb (13.5-17.5) g/dL Hct (41-53) % MCV (80-100) fL MCH (26-34) PG MCHC (30-36) % RDW (11.6-14.8) % Plt Count (150-400) X10^3/uL Neut % (Auto) (50-75) % Lymph % (Auto) (25-40) % Lares % (Auto) (3-14) % Eos % (Auto) (2-4) % Baso % (Auto) (0-2) % Neut # (Auto) (1855-6548) /uL Lymph # (Auto) (6758-9385) /uL Lares # (Auto) (0-900) /uL Eos # (Auto) (0-450) /uL Baso # (Auto) (0-100) /uL PT (10.1-12.7) SECONDS INR (0.9-1.3) APTT (26.4-36.2) SECONDS ABG pH 7.33 L (7.35-7.45) ABG pCO2 44.5 (35-45) mmHg ABG pO2 91 (80-100) mmHg ABG HCO3 24 (22-26) mmol/L ABG Total CO2 25 (21-31) mmol/L ABG O2 Saturation 96 (95-100) % ABG Base Excess -2.0 (-2-2) mmol/L FiO2 40 Sodium (137-145) mmol/L Potassium (3.4-5.1) mmol/L Chloride (98-107) mmol/L Carbon Dioxide (22-32) mmol/L BUN (9-20) mg/dL Creatinine (0.66-1.25) mg/dL Estimated GFR (>60) mL/min BUN/Creatinine Ratio (6-22) Glucose (80-110) mg/dL Calcium (8.4-10.2) mg/dL Magnesium (1.6-2.3) mg/dL Total Bilirubin (0.2-1.3) mg/dL AST (17-59) IU/L ALT (<50) IU/L Alkaline Phosphatase (38-126) U/L Troponin I 0.875 H* (0.01-0.034) ng/mL Total Protein (6.3-8.2) g/dL Albumin (3.5-5.0) g/dL Globulin (1.7-4.1) g/dL Albumin/Globulin Ratio (1.0-2.8) SARS-CoV-2 (PCR) Negative (Negative) MDM Narrative Medical decision making narrative: 85-year-old gentleman who presents with recurrent episodes of implanted defibrillator shocking him secondary to ventricular tachycardia. Patient has never been seen at [facility] and no additional medical history was available. As he is becoming more unstable severity of the situation including possibility of were reviewed with his and she was ordered to the waiting room. Multiple rhythms ranging from wide complex rhythm at a rate in the 60s to polymorphic V-tach in the 160 range. He is not maintaining any rhythm long enough to override shock him. He is given amiodarone 300 mg IV and an additional 150 is repeated. Work of breathing with increasing distal cyanosi s is becoming more problematic so decision was made to intubate prior to full respiratory arrest. With continued significant V-tach and wide complex arrhythmias he is given 100 mg of lidocaine which was repeated approximately 20 minutes later. After intubation and after adequate time for anti arrhythmics to likely take affect his rhythm seems to be stabilizing into wide complex mostly paced rhythm. Currently is on Levophed for pressure control and propofol and fentanyl for sedation will wean off the fentanyl. 7pm Discuss[address] Dr Masterson, cardiology regarding post arrest care. He has an EF of 20-25. H/o oral amiodirone in the past. He recommended continuing amiodarone drip at a mg per minute and considering transfer to [facility] for further workup and definitive treatment. If possible he did think that weaning off pressors and then beginning to wean off sedation would likely lead to successful extubation. Will contact [facility] transfer center to see if bed is available. Dr. Masterson, cardiology, would be consulting and medicine would need to be the admitting service. 1899 - [place] - patient received in sign out from Dr. Dee. Patient remains stable on above stated meds, second trop has significantly elevated. cardiology (Zelalem) requests we continue Amio at 1mg/min until he arrives at [facility]. Patient has remained stable, a few very short on sustained runs of V-tach. 0500 -I spoke with the suction plate carrier cleaner at [facility] who accepts patient in transfer. EMS transport called and will arrive at about 635 <Óscar Torres DO - Last Filed: 09/13/21 06:28> Critical Care Time Critical Care Time: Yes Total Critical Care Time: 120 Attestation: The high probability of a clinically significant, sudden or life threatening deterioration of the [CV] system(s) required my full and direct attention, intervention and personal management. The aggregate critical care time was [120] minutes. This time is in addition to time spent performing reported procedures but includes the following: [x] Data Review and interpretation [x] Patient assessment and monitoring of vital signs [x] Documentation [x] Medication orders and management Discharge Plan Departure Patient Disposition: [facility] Clinical Impression: Defibrillator discharge, Ventricular tachycardia, Respiratory failure, Elevated troponin Prescriptions: No Action atorvastatin 20 mg tablet PO Qty: 90 0RF bupropion HCl 100 mg tablet 100 mg PO BID 0RF bupropion HCl 100 mg tablet PO Qty: 180 0RF warfarin 5 mg tablet PO Qty: 90 0RF epinephrine [EpiPen 2-David] 0.3 mg/0.3 mL auto-injector 0.3 mg IM ONCE 0RF ferrous sulfate 325 mg (65 mg iron) tablet,delayed release (DR/EC) 325 mg PO DAILY 0RF Entresto 49-51 mg tablet PO Qty: 60 0RF furosemide 40 mg tablet 20 mg PO DAILY Qty: 120 0RF calcium carbonate [Calcium 500] 500 mg calcium (1,250 mg) tablet,chewable 750 mg PO DAILY 0RF cholecalciferol (vitamin D3) 25 mcg (1,000 unit) capsule 25 mcg PO DAILY 0RF cyanocobalamin (vitamin B-12) 1,000 mcg capsule 1,000 mcg PO DAILY 0RF gabapentin 100 mg capsule 100 mg PO TID 0RF metoprolol succinate 25 mg tablet extended release 24 hr 12.5 mg PO DAILY 0RF Referrals: Navarro Peña MD [Primary Care Provider] - ED Sign-out <Gila Dee MD - Last Filed: 09/19/21 04:20> Cosign ED Attending Cosignature Attestation: I was immediately available in the department for consultation throughout this patient's visit. I agree with documentation as above. Gila Dee MD
[2021-09-12] MEDS: fentaNYL 100 MCG/2 ML INJ 50 MCG IV ×2 (15:12→20:08)
[2021-09-12] MEDS: NOREPINEPHRINE BITARTRATE/D5W 4 MG/250 ML PLAST..BAG 30 MG IV (15:20)
[2021-09-12 15:28] LABS: Alanine Aminotransferase 25 IU/L (<50); Albumin 3.9 g/dL (3.5-5.0); Albumin Globulin Ratio 1.5 (1.0-2.8); Alkaline Phosphatase 84 U/L (38-126); Aspartate Aminotransferase 36 IU/L (17-59); BUN Creatinine Ratio 22.7 (6-22); Bilirubin Total 0.9 mg/dL (0.2-1.3); Blood Urea Nitrogen 37 mg/dL (9-20); Calcium 10.5 mg/dL (8.4-10.2); Carbon Dioxide 28 mmol/L (22-32); Chloride 107 mmol/L (98-107); Estimated Glomerular Filt Rate 40.6 mL/min (>60); Globulin 2.6 g/dL (1.7-4.1); Glucose 127 mg/dL (80-110); HEMOLYSIS < 15 (0-50); Magnesium 1.9 mg/dL (1.6-2.3); Sodium 142 mmol/L (137-145); Total Protein 6.5 g/dL (6.3-8.2)
[2021-09-12 15:39] LABS: Troponin I 0.058 ng/mL (0.01-0.034)
[2021-09-12 15:41] LABS: INR 2.4 (0.9-1.3); Prothrombin Time 27.7 SECONDS (10.1-12.7)
[2021-09-12 15:43] LABS: PTT Partial Thromboplastin Tim 37 SECONDS (26.4-36.2)
[2021-09-12] MEDS: fentaNYL 1,000 MCG in DEXTROSE 5% IN WATER 230 ML 20.185 ML IV (15:54)
[2021-09-12 15:56] LABS: COVID19 -Nasal RAPID Negative (Negative)
[2021-09-12 16:11] LABS: Fractionated Inspired Oxygen 40; HCO3 ABG 24 mmol/L (22-26); Oxygen Saturation ABG 96 % (95-100); PCO2 ABG 44.5 mmHg (35-45); PO2 ABG 91 mmHg (80-100); TCO2 ABG 25 mmol/L (21-31); pH ABG 7.33 (7.35-7.45)
--- NOTE | 2021-09-12 17:25 | PC.NURSE ---
at bedside speaking to pt and rubbing shoulder, pt noted to be moving mouth around against tube.
[2021-09-12] MEDS: propofoL 1,000 MG/100 ML VIAL 2.422 MG IV (17:46)
[2021-09-12] MEDS: AMIODARONE 360 MG/200 ML PIGGYBACK 33.33 MG IV (19:42)
[2021-09-12 21:12] LABS: Troponin I 0.875 ng/mL (0.01-0.034)
[2021-09-12] MEDS: HEPARIN 5,000 UNIT/ML VIAL 4000 UNIT IV (23:18)
[2021-09-12] MEDS: HEPARIN DRIP 25,000 UNIT/500 ML IV.SOLN 20 UNIT IV (23:20)
[2021-09-13] VITALS (56 sets, daily range): BP systolic 97–123; BP diastolic 55–78; PULSE 40–91; RESP 16–46; TEMP 36.3–36.4; O2SAT 100
[2021-09-13] MEDS: propofoL 1,000 MG/100 ML VIAL 12.111 MG IV (01:06)
[2021-09-13] MEDS: AMIODARONE 360 MG/200 ML PIGGYBACK 33.33 MG IV (01:44)
[2021-09-13] MEDS: fentaNYL 1,000 MCG in DEXTROSE 5% IN WATER 230 ML 20.185 ML IV (01:57)
[2021-09-13] MEDS: NOREPINEPHRINE BITARTRATE/D5W 4 MG/250 ML PLAST..BAG 15 MG IV (04:14)
[2021-09-13] MEDS: CHLORHEXIDINE GLUCONATE 15 ML CUP PO (04:15)
--- NOTE | 2021-09-13 06:49 | PC.NURSE ---
Pt remained stable and comfortable overnight on vent and multiple drips. Routine nursing cares done. Daughter was at bedside, followed by . Pt transferred to [facility] for higher level of care.
== END 2021-09-13 07:10 | disposition short-term general hospital (02) ==
PROVIDERS: Emergency Medicine; Emergency Provider Emergency Medicine; PCP Family Medicine
DX: I47.2 Ventricular tachycardia (principal); J96.90 Respiratory failure, unspecified, unspecified whether with hypoxia or hypercapnia; R77.8 Other specified abnormalities of plasma proteins; Z20.822 Contact with and (suspected) exposure to COVID-19; Z95.810 Presence of automatic (implantable) cardiac defibrillator; Z87.891 Personal history of nicotine dependence
CPT/HCPCS: 36415; 36600; 71045; 80053; 82805; 83735; 84484; 85025; 85610; 85730; 87635; 93005; 94799; 96365; 96366; 96375; 96376; 99285; 99291; 99292; C9803; J0282; J1644; J2250; J2704; J3010